=== PATIENT | female | born 1960 | race Caucasian/White ===

== ENCOUNTER 2019-07-03 12:44 | Inpatient (IN) | payer MEDICARE, BC ==
[2019-07-03] MEDS ORDERED: Chlorhexidine Gluconate 0.12% Oral Rinse 473 ML Bottle PO PRN (16:07)
--- NOTE | 2019-07-03 17:33 | PCM.HP.2 ---
H&P History of Present Illness - General Date of Service: 07/03/19 Admit Problem/Dx: Admission Diagnosis/Problem Admission Diagnosis/Problem Knee joint operation Source of Information: Patient, Old Records History Limitations: Reports: No Limitations - History of Present Illness Initial Comments - Free Text/Narative: 'torri is a 59-year-old female patient from [place] that was transferred by [facility] after a right TKA with a wound VAC for swing bed/rehabilitation. She has no concerns today. She says she is having some pain in her knee but other than that she has no concerns. She denies shortness of breath, chest pain, leg swelling, fevers, chills. He says she has a history of artificial valve. She has a history of thromboembolism and coronary artery disease. Right Knee Pain Score (Numeric/FACES): 5 - Related Data Allergies/Adverse Reactions: Allergies Allergy/AdvReac Type Severity Reaction Status Date / Time acetaminophen [From [place]] Allergy Dizziness Verified 07/03/19 14:15 adhesive Allergy Irritabilit Verified 07/03/19 14:15 y aspirin Allergy Dizziness Verified 07/03/19 14:15 bupropion Allergy Itching Verified 07/03/19 14:19 erythromycin base Allergy Other Verified 07/03/19 14:15 hydrocodone [From [place]] Allergy Dizziness Verified 07/03/19 14:15 latex Allergy Other Verified 07/03/19 14:15 metformin Allergy Diarrhea Verified 07/03/19 14:15 Penicillins Allergy Dizziness Verified 07/03/19 14:15 soap Allergy Other Verified 07/03/19 14:15 topiramate [From Topamax] Allergy Dizziness Verified 07/03/19 14:21 tramadol Allergy Other Verified 07/03/19 14:15 Home Medications: Home Meds Amitriptyline [Elavil] 50 mg PO BEDTIME 07/03/19 [History] Chlorhexidine Gluconate 0.12% [Peridex 0.12% Rinse] 10 ml PO BID PRN 07/03/19 [ History] Clindamycin HCl 600 mg PO ASDIRECTED PRN 07/03/19 [History] Ferrous Sulfate 325 mg PO Q48H 07/03/19 [History] Furosemide [Lasix] 40 mg PO BID@08,16 07/03/19 [History] Lisinopril [Prinivil] 10 mg PO DAILY 07/03/19 [History] Magnesium Oxide 500 mg PO DAILY 07/03/19 [History] Metoprolol Succinate [Toprol XL] 25 mg PO DAILY 07/03/19 [History] Omeprazole 20 mg PO DAILY@0600 07/03/19 [History] Potassium Chloride 20 meq PO BID 07/03/19 [History] Rivaroxaban [Xarelto] 20 mg PO WITHDINNER 07/03/19 [History] Sennosides/Docusate Sodium [Senna-S] 1 tab PO BID PRN 07/03/19 [History] Simvastatin 20 mg PO BEDTIME 07/03/19 [History] Sodium Fluoride [Sf 5000 Plus] 1 applic DENT BID 07/03/19 [History] Vitamin B Complex 1 tab PO DAILY 07/03/19 [History] glipiZIDE [Glipizide ER] 10 mg PO DAILY 07/03/19 [History] oxyCODONE 5 mg PO Q3H PRN 07/03/19 [History] oxyCODONE 10 mg PO Q3H PRN 07/03/19 [History] Past Medical History HEENT History: Reports: Impaired Vision Cardiovascular History: Reports: Afib, Blood Clots/VTE/DVT, Hypertension, [place], SOB on Exertion, Other (See Below) Other Cardiovascular History: TAVR-No pacemaker Respiratory History: Reports: Other (See Below) Gastrointestinal History: Reports: Chronic Constipation, GI Bleed Other Gastrointestinal History: Bleeding Ulcer CLINICAL ASST History: Reports: Other (See Below) Other OB/BYN History: Hysterectomy Musculoskeletal History: Reports: Arthritis Endocrine/Metabolic History: Reports: Diabetes, Type II - Infectious Disease History Infectious Disease History: Reports: Other (See Below) Other Infectious Disease History: Pt not sure - Past Surgical History HEENT Surgical History: Reports: None Cardiovascular Surgical History: Reports: Other (See Below) Other Cardiovascular Surgeries/Procedures: TAVR GI Surgical History: Reports: Other (See Below) Other GI Surgeries/Procedures: Gastric Sleeve Female Surgical History: Reports: None Musculoskeletal Surgical History: Reports: Arthroscopic Knee, Knee Replacement Other Musculoskeletal Surgeries/Procedures:: Right Knee Replaced 06/30 Social & Family History - Family History Family Medical History: Noncontributory - Tobacco Use Smoking Status *Q: Never Smoker - Caffeine Use Caffeine Use: Reports: Soda Other Caffeine Use: 2 cans pop/day - Recreational Drug Use Recreational Drug Use: No H&P Review of Systems - Review of Systems: Review Of Systems: See Below General: Reports: No Symptoms HEENT: Reports: No Symptoms Pulmonary: Reports: No Symptoms Cardiovascular: Reports: No Symptoms Gastrointestinal: Reports: No Symptoms Genitourinary: Reports: No Symptoms Musculoskeletal: Reports: Joint Pain Skin: Reports: No Symptoms Psychiatric: Reports: No Symptoms Neurological: Reports: No Symptoms Hematologic/Lymphatic: Reports: No Symptoms Immunologic: Reports: No Symptoms Exam - Exam Exam: See Below - Vital Signs Vital Signs: Last Vital Signs Temp 97.2 F 07/03/19 15:20 Pulse 74 07/03/19 15:20 Resp 16 07/03/19 15:20 BP 107/48 L 07/03/19 15:20 Pulse Ox 96 07/03/19 15:20 Weight: 367 lb 3.2 oz - Exam General: Alert, Oriented, Cooperative, Other (Overweight) HEENT: PERRLA, Hearing Intact, Mucosa Moist & Rankin, Posterior Pharynx Clear, TMs Clear Neck: Supple, Trachea Midline. No: Lymphadenopathy, JVD Lungs: Clear to Auscultation, Normal Respiratory Effort. No: Crackles, Rales, Rhonchi Cardiovascular: Regular Rate, Regular Rhythm, Systolic Murmur GI/Abdominal Exam: Normal Bowel Sounds, Soft, Non-Tender, No Distention, No Abnormal Bruit, No Mass Back Exam: Normal Inspection Extremities: No Pedal Edema, Other (Right knee wound covered with a wound VAC.) Skin: Warm, Dry, Intact Neurological: Normal Speech, Normal Tone Neuro Extensive - Mental Status: Alert, Oriented x3, Normal Mood/Affect, Normal Cognition Psychiatric: Alert, Normal Affect, Normal Mood - Problem List (1) S/P total knee arthroplasty SNOMED Code(s): 1849843169717, 922658866, 8206731784321 ICD Code: Z96.659 - PRESENCE OF UNSPECIFIED ARTIFICIAL KNEE JOINT Status: Acute Current Visit: Yes (2) Encounter for management of wound VAC SNOMED Code(s): 767993381 ICD Code: OGZ7604 - Status: Acute Current Visit: Yes (3) Type 2 diabetes mellitus SNOMED Code(s): 57877727 ICD Code: E11.9 - TYPE 2 DIABETES MELLITUS WITHOUT COMPLICATIONS Status: Acute Current Visit: Yes (4) History of DVT (deep vein thrombosis) SNOMED Code(s): 582122114 ICD Code: Z86.718 - PERSONAL HISTORY OF OTHER VENOUS THROMBOSIS AND EMBOLISM Status: Acute Current Visit: Yes (5) Obesity SNOMED Code(s): 186822219, 843322001 ICD Code: E66.9 - OBESITY, UNSPECIFIED Status: Acute Current Visit: Yes Problem List Initiated/Reviewed/Updated: Yes Orders Last 24hrs: Active Orders 24 hr Category Date Time Status Patient Status [ADT] Routine ADT 07/03/19 16:05 Active Activity as Tolerated [RC] .Routine Care 07/03/19 17:16 Active May Shower [RC] ASDIRECTED Care 07/03/19 16:05 Active Oxygen Therapy [RC] PRN Care 07/03/19 16:05 Active POC Glucose [Blood Glucose Check, Bedside] [RC] ,17 Care 07/03/19 17:00 Active Up With Assistance [RC] ASDIRECTED Care 07/03/19 16:05 Active VTE/DVT Education [RC] Per Unit Routine Care 07/03/19 16:05 Active Vital Signs [RC] DAILY Care 07/03/19 16:05 Active OT Evaluation and Treatment [CONS] Routine Cons 07/03/19 16:05 Active PT Evaluation and Treatment [CONS] Routine Cons 07/03/19 16:05 Active Consistent Carbohydrate Diet [DIET] Diet 07/03/19 Dinner Active Amitriptyline [Elavil] Med 07/03/19 21:00 Active 50 mg PO BEDTIME Chlorhexidine Gluconate 0.12% [Peridex 0.12% Rinse] Med 07/03/19 16:07 Active 10 ml PO BID PRN Docusate Sodium/Sennosides [Senna Plus] Med 07/03/19 16:07 Active 1 tab PO BID PRN Ferrous Sulfate Med 07/04/19 16:15 Active 325 mg PO Q48H Furosemide [Lasix] Med 07/03/19 16:00 Active 40 mg PO BID@08,16 Lisinopril [Prinivil] Med 07/04/19 09:00 Active 10 mg PO DAILY Magnesium Oxide Med 07/04/19 09:00 Active 400 mg PO DAILY Metoprolol Succinate [Toprol XL] Med 07/04/19 09:00 Active 25 mg PO DAILY Pantoprazole [ProTONIX] Med 07/04/19 06:00 Active 40 mg PO DAILY@0600 Potassium Chloride [Klor-Con M20] Med 07/03/19 21:00 Active 20 meq PO BID Rivaroxaban [Xarelto] Med 07/03/19 18:00 Active 20 mg PO WITHDINNER Simvastatin [Zocor] Med 07/03/19 21:00 Active 20 mg PO BEDTIME Sodium Fluoride [Sf 5000 Plus] Med 07/03/19 21:00 Pending 1 applic DENT BID Vitamin B Complex with C [Total B With C] Med 07/04/19 09:00 Active 1 each PO DAILY glipiZIDE [Glucotrol XL] Med 07/04/19 09:00 Active 10 mg PO DAILY oxyCODONE Med 07/03/19 16:07 Active 10 mg PO Q3H PRN oxyCODONE Med 07/03/19 16:07 Active 5 mg PO Q3H PRN Wound Vac Management [OM.PC] Routine Oth 07/03/19 17:17 Ordered Resuscitation Status Routine Resus Stat 07/03/19 16:05 Ordered Medication Orders Amitriptyline HCl (Elavil) 50 mg PO BEDTIME JONAH Chlorhexidine Gluconate (Peridex 0.12% Rinse) 10 ml PO BID PRN PRN Reason: MOUTH RINSE Ferrous Sulfate (Ferrous Sulfate) 325 mg PO Q48H JONAH Furosemide (Lasix) 40 mg PO BID@,16 JONAH Glipizide (Glucotrol Xl) 10 mg PO DAILY [facility] Lisinopril (Prinivil) 10 mg PO DAILY [facility] Magnesium Oxide (Magnesium Oxide) 400 mg PO DAILY [facility] Metoprolol Succinate (Toprol Xl) 25 mg PO DAILY [facility] Multivitamins (Total B With C) 1 each PO DAILY [facility] Non-Formulary Medication (Sodium Fluoride [Sf 5000 Plus]) 1 applic DENT BID JONAH Oxycodone HCl (Oxycodone) 10 mg PO Q3H PRN PRN Reason: SEVERE PAIN Oxycodone HCl (Oxycodone) 5 mg PO Q3H PRN PRN Reason: MODERATE PAIN Pantoprazole Sodium (Protonix) 40 mg PO DAILY@0600 [facility] Potassium Chloride (Klor-Con M20) 20 meq PO BID JONAH Rivaroxaban (Xarelto) 20 mg PO WITHDINNER JONAH Senna/Docusate Sodium (Senna Plus) 1 tab PO BID PRN PRN Reason: Constipation Simvastatin (Zocor) 20 mg PO BEDTIME JONAH Assessment/Plan Comment:: 1. Admit to swing bed. 2. PT/OT. 3. Wound VAC 4. Oxycodone for [place] for pain control. 5. Diabetic diet 6. She is on anticoagulation for VTE prophylaxis 7. Labs/x-rays none 8. Accu-Cheks twice a day 9. Continue the medications that are on her monitor from [place] except the clindamycin chooses for dental prophylaxis.
[2019-07-03] MEDS: Furosemide 40 MG Tab PO SCH (17:54)
[2019-07-03] MEDS: oxyCODONE 5 MG Tab PO PRN (19:38)
[2019-07-03] MEDS ORDERED: SODIUM FLUORIDE DENT SCH (21:00)
[2019-07-03] MEDS: Simvastatin 20 MG Tab PO SCH (21:19)
[2019-07-03] MEDS: Potassium Chloride 20 MEQ Tab.ER PO SCH (21:19)
[2019-07-04] MEDS: oxyCODONE 5 MG Tab PO PRN ×4 (02:42→21:59)
[2019-07-04] MEDS: Pantoprazole 40 MG Tab.CR PO SCH (06:30)
[2019-07-04] MEDS: Furosemide 40 MG Tab PO SCH ×2 (08:08→16:58)
[2019-07-04] MEDS: Vitamin B Complex with Vitamin C Tab PO SCH (08:09)
[2019-07-04] MEDS: Magnesium Oxide 400 MG Tab PO SCH (08:09)
[2019-07-04] MEDS: glipiZIDE 10 MG Tab.ER PO SCH (08:09)
[2019-07-04] MEDS: Potassium Chloride 20 MEQ Tab.ER PO SCH ×2 (08:09→21:31)
[2019-07-04] MEDS: Metoprolol Succinate 25 MG Tab.ER PO SCH (08:09)
[2019-07-04] MEDS: Lisinopril 10 MG Tab PO SCH (08:09)
[2019-07-04] MEDS: Ferrous Sulfate 325 MG Tab PO SCH (17:11)
[2019-07-04] MEDS: Simvastatin 20 MG Tab PO SCH (21:31)
[2019-07-05] MEDS: Pantoprazole 40 MG Tab.CR PO SCH (06:34)
[2019-07-05] MEDS: oxyCODONE 5 MG Tab PO PRN ×4 (06:45→21:15)
[2019-07-05] MEDS: Furosemide 40 MG Tab PO SCH ×2 (07:46→17:03)
[2019-07-05] MEDS: glipiZIDE 10 MG Tab.ER PO SCH (09:36)
[2019-07-05] MEDS: Potassium Chloride 20 MEQ Tab.ER PO SCH ×2 (09:37→21:05)
[2019-07-05] MEDS: Lisinopril 10 MG Tab PO SCH (09:38)
[2019-07-05] MEDS: Magnesium Oxide 400 MG Tab PO SCH (09:38)
[2019-07-05] MEDS: Metoprolol Succinate 25 MG Tab.ER PO SCH (09:39)
[2019-07-05] MEDS: Vitamin B Complex with Vitamin C Tab PO SCH (09:40)
[2019-07-05] MEDS ORDERED: Celecoxib 200 MG Cap PO SCH (09:45)
[2019-07-05] MEDS: Celecoxib 100 MG Cap PO SCH (11:58)
[2019-07-05] MEDS: Acetaminophen 500 MG Tab PO SCH ×2 (14:06→21:14)
[2019-07-05] MEDS: Simvastatin 20 MG Tab PO SCH (21:05)
[2019-07-06] MEDS: oxyCODONE 5 MG Tab PO PRN ×3 (04:08→14:31)
[2019-07-06] MEDS: Pantoprazole 40 MG Tab.CR PO SCH ×2 (04:09→06:46)
[2019-07-06] MEDS: glipiZIDE 10 MG Tab.ER PO SCH (09:11)
[2019-07-06] MEDS: Furosemide 40 MG Tab PO SCH ×2 (09:11→15:56)
[2019-07-06] MEDS: Potassium Chloride 20 MEQ Tab.ER PO SCH ×2 (09:12→20:04)
[2019-07-06] MEDS: Vitamin B Complex with Vitamin C Tab PO SCH (09:12)
[2019-07-06] MEDS: Magnesium Oxide 400 MG Tab PO SCH (09:13)
[2019-07-06] MEDS: Lisinopril 10 MG Tab PO SCH (09:13)
[2019-07-06] MEDS: Celecoxib 100 MG Cap PO SCH (09:13)
[2019-07-06] MEDS: Metoprolol Succinate 25 MG Tab.ER PO SCH (09:19)
[2019-07-06] MEDS: Acetaminophen 500 MG Tab PO SCH ×3 (09:20→20:04)
[2019-07-06] MEDS: Ferrous Sulfate 325 MG Tab PO SCH (15:56)
[2019-07-06] MEDS: Ondansetron 4 MG Tab.DIS PO PRN (17:41)
[2019-07-06] MEDS: Simvastatin 20 MG Tab PO SCH (20:04)
[2019-07-07] MEDS: oxyCODONE 5 MG Tab PO PRN ×5 (01:04→19:46)
[2019-07-07] MEDS: Pantoprazole 40 MG Tab.CR PO SCH (05:57)
[2019-07-07] MEDS: Furosemide 40 MG Tab PO SCH ×2 (07:40→15:56)
--- NOTE | 2019-07-07 08:28 | PN ---
DATE SEEN: 07/05/2019 SUBJECTIVE: Saida is a 59-year-old resident of [place], [place], who underwent right total knee replacement by Dr. Rogers at [facility] in [place], on 06/30/2019. Following surgery, her postoperative course included stable blood loss anemia, transient hyperkalemia, and transient atrial flutter. A wound VAC was placed, and she was discharged to [facility] on 07/03/2019. She has been improving slowly with less pain reported today than immediately postop. She is taking oxycodone, however, 10 mg every 3 hours, and it is only providing her minimal pain relief. Her wound VAC has not produced any drainage. She is otherwise feeling well with no fever, chills, or sweats. She did have an episode of vomiting, which she states occurs transiently. She had a gastric sleeve placed in 2014 and has had occasional unpredictable episodes of vomiting since that. OBJECTIVE: GENERAL: She is alert, comfortable, and a good historian. VITAL SIGNS: Blood pressure 142/59, pulse 76 and regular, respirations 18, temp 98.7, and O2 saturation 94% on room air. Weight 377 pounds, 2 days ago, on admission. SKIN: Anicteric, warm, and dry. She has a wound VAC in place over the left knee. No surrounding erythema is noted and no skin rash. HEENT: Shows her mouth to be dry. LUNGS: Clear to the bases. HEART: Regular with a 3/6 systolic murmur. She states she underwent TAVR in March 2019, with apparently good result. ABDOMEN: Obese, soft, and nontender. EXTREMITIES: Show trace edema at the ankles. ASSESSMENT: 1. Day #5 postoperative, right total knee arthroplasty, stable, but with inadequate pain control. 2. History of transcatheter aortic valve replacement 6 months ago, stable. 3. History of recurrent pulmonary emboli, on lifelong anticoagulation. 4. Morbid obesity. 5. Type 2 diabetes. 6. Osteoarthritis. 7. Obstructive sleep apnea. 8. Postoperative anemia with hemoglobin, 2 days ago, of 8.0. PLAN: We will add Celebrex 200 mg daily and watch for any sign of GI upset. We will also supplement with Tylenol p.r.n. and continue her oxycodone. She is progressing in therapy satisfactorily. Plans are for continued rehab in [facility] [place]. Followup orthopedic appointment with Dr. Rogers is scheduled for July 15, 2019. /[id number] RAMESH/BRIANDA
[2019-07-07] MEDS: Celecoxib 200 MG Cap PO SCH (09:33)
[2019-07-07] MEDS: Potassium Chloride 20 MEQ Tab.ER PO SCH ×2 (09:34→20:50)
[2019-07-07] MEDS: glipiZIDE 10 MG Tab.ER PO SCH (09:34)
[2019-07-07] MEDS: Magnesium Oxide 400 MG Tab PO SCH (09:34)
[2019-07-07] MEDS: Acetaminophen 500 MG Tab PO SCH ×3 (09:34→20:50)
[2019-07-07] MEDS: Lisinopril 10 MG Tab PO SCH (09:34)
[2019-07-07] MEDS: Vitamin B Complex with Vitamin C Tab PO SCH (09:35)
[2019-07-07] MEDS: Metoprolol Succinate 25 MG Tab.ER PO SCH (10:30)
[2019-07-07] MEDS: Simvastatin 20 MG Tab PO SCH (20:50)
[2019-07-08] MEDS: oxyCODONE 5 MG Tab PO PRN ×2 (04:52→20:56)
[2019-07-08] MEDS: Pantoprazole 40 MG Tab.CR PO SCH (05:01)
[2019-07-08] MEDS: Furosemide 40 MG Tab PO SCH ×2 (08:53→16:35)
[2019-07-08] MEDS: Potassium Chloride 20 MEQ Tab.ER PO SCH ×2 (08:53→20:56)
[2019-07-08] MEDS: Celecoxib 200 MG Cap PO SCH (08:53)
[2019-07-08] MEDS: glipiZIDE 10 MG Tab.ER PO SCH (08:53)
[2019-07-08] MEDS: Magnesium Oxide 400 MG Tab PO SCH (08:54)
[2019-07-08] MEDS: Lisinopril 10 MG Tab PO SCH (08:54)
[2019-07-08] MEDS: Metoprolol Succinate 25 MG Tab.ER PO SCH (08:54)
[2019-07-08] MEDS: Vitamin B Complex with Vitamin C Tab PO SCH (08:55)
[2019-07-08] MEDS: Acetaminophen 500 MG Tab PO SCH ×3 (08:55→20:56)
[2019-07-08] MEDS: Ferrous Sulfate 325 MG Tab PO SCH (16:34)
[2019-07-08] MEDS: Simvastatin 20 MG Tab PO SCH (20:56)
[2019-07-09] MEDS: oxyCODONE 5 MG Tab PO PRN ×4 (00:52→21:06)
[2019-07-09] MEDS: Pantoprazole 40 MG Tab.CR PO SCH (05:06)
[2019-07-09] MEDS: Celecoxib 200 MG Cap PO SCH (08:35)
[2019-07-09] MEDS: glipiZIDE 10 MG Tab.ER PO SCH (08:35)
[2019-07-09] MEDS: Magnesium Oxide 400 MG Tab PO SCH (08:35)
[2019-07-09] MEDS: Furosemide 40 MG Tab PO SCH ×2 (08:35→16:11)
[2019-07-09] MEDS: Vitamin B Complex with Vitamin C Tab PO SCH (08:35)
[2019-07-09] MEDS: Potassium Chloride 20 MEQ Tab.ER PO SCH ×2 (08:36→21:02)
[2019-07-09] MEDS: Metoprolol Succinate 25 MG Tab.ER PO SCH (08:36)
[2019-07-09] MEDS: Lisinopril 10 MG Tab PO SCH (08:36)
[2019-07-09] MEDS: Acetaminophen 500 MG Tab PO SCH ×3 (08:37→21:02)
[2019-07-09] MEDS: Ondansetron 4 MG Tab.DIS PO PRN (13:22)
[2019-07-09] MEDS: Simvastatin 20 MG Tab PO SCH (21:01)
[2019-07-10] MEDS: oxyCODONE 5 MG Tab PO PRN ×3 (04:06→19:17)
[2019-07-10] MEDS: Pantoprazole 40 MG Tab.CR PO SCH (06:07)
[2019-07-10] MEDS: Furosemide 40 MG Tab PO SCH ×2 (07:54→16:45)
[2019-07-10] MEDS: glipiZIDE 10 MG Tab.ER PO SCH (08:09)
[2019-07-10] MEDS: Potassium Chloride 20 MEQ Tab.ER PO SCH ×2 (08:09→20:09)
[2019-07-10] MEDS: Celecoxib 200 MG Cap PO SCH (08:09)
[2019-07-10] MEDS: Lisinopril 10 MG Tab PO SCH (08:10)
[2019-07-10] MEDS: Metoprolol Succinate 25 MG Tab.ER PO SCH (08:10)
[2019-07-10] MEDS: Magnesium Oxide 400 MG Tab PO SCH (08:10)
[2019-07-10] MEDS: Acetaminophen 500 MG Tab PO SCH ×3 (08:11→20:10)
[2019-07-10] MEDS: Vitamin B Complex with Vitamin C Tab PO SCH (08:11)
--- NOTE | 2019-07-10 11:51 | PN ---
DATE SEEN: 07/10/2019 SUBJECTIVE: Saida is a 59-year-old woman, who underwent right total knee arthroplasty by Dr. Rogers in [place] on 06/30/2019. She has been in swing bed at [facility] now since 07/03/2019. She is progressing steadily through therapy and making nice improvement. She is still having episodes of pain and occasionally she would have a shot of pain during the night, usually once or twice overnight. She is tolerating ambulation and is about to start attempting steps. PAST MEDICAL HISTORY: Past history also is positive for recurrent PEs, on long- term anticoagulation. She has had nausea intermittently, which she relates back to having her gastric sleeve surgery. OBJECTIVE: GENERAL: She is alert, comfortable, healthy-appearing, and in good spirits. VITAL SIGNS: Blood pressure 126/49, pulse 55 and regular, respirations normal, O2 saturation 97% on room air, and temp 97.4. SKIN: She has a foam dressing residual from the wound VAC in place over the right knee with the tubing clamped and the VAC system removed. There is no erythema, drainage, or significant tenderness around the incision. HEENT: Her mouth to be dry. LUNGS: Clear to the bases. HEART: Regular with a 3/6 systolic murmur most prominent over the aortic area. ABDOMEN: Obese, soft, but no epigastric area tenderness. EXTREMITIES: Trace to 1+ edema at the right ankle. ASSESSMENT: 1. One week post right total knee arthroplasty, progressing well through therapy. 2. Recurrent pulmonary embolisms, on anticoagulation. 3. Mild intermittent nausea and vomiting post gastric sleeve procedure. 4. Chronic anemia exacerbated postoperatively, poorly tolerant of iron. 5. Type 2 diabetes. 6. Hypertension. 7. Hyperlipidemia. PLAN: We will recheck her labs tomorrow. We will plan to get her off the Celebrex again over the next few days because of her current use of Xarelto and history of gastric sleeve surgery. Continue therapy. She has her followup orthopedic appointment in [place] on July 15, 2019, and anticipate discharge to home when adequately rehabilitated. /[id number] RAMESH/BRIANDA
[2019-07-10] MEDS: Ferrous Sulfate 325 MG Tab PO SCH (16:45)
[2019-07-10] MEDS: Simvastatin 20 MG Tab PO SCH (20:10)
[2019-07-11] MEDS: oxyCODONE 5 MG Tab PO PRN ×3 (01:16→16:25)
[2019-07-11] MEDS: Pantoprazole 40 MG Tab.CR PO SCH (06:13)
[2019-07-11] MEDS: Furosemide 40 MG Tab PO SCH ×2 (07:38→16:21)
[2019-07-11] MEDS: Potassium Chloride 20 MEQ Tab.ER PO SCH ×2 (09:57→20:04)
[2019-07-11] MEDS: Celecoxib 200 MG Cap PO SCH (09:57)
[2019-07-11] MEDS: glipiZIDE 10 MG Tab.ER PO SCH (09:57)
[2019-07-11] MEDS: Lisinopril 10 MG Tab PO SCH (09:57)
[2019-07-11] MEDS: Magnesium Oxide 400 MG Tab PO SCH (09:57)
[2019-07-11] MEDS: Metoprolol Succinate 25 MG Tab.ER PO SCH (09:58)
[2019-07-11] MEDS: Acetaminophen 500 MG Tab PO SCH ×3 (09:58→20:04)
[2019-07-11] MEDS: Vitamin B Complex with Vitamin C Tab PO SCH (09:58)
--- NOTE | 2019-07-11 09:58 | PCM.PN ---
- General Info Date of Service: 07/11/19 Subjective Update: Doing well. Pain still present,right knee,sharp. Functional Status: Reports: Pain Controlled - Review of Systems General: Reports: No Symptoms HEENT: Reports: No Symptoms Pulmonary: Reports: No Symptoms Cardiovascular: Reports: No Symptoms Gastrointestinal: Reports: No Symptoms Genitourinary: Reports: No Symptoms - Patient Data Vitals - Most Recent: Last Vital Signs Temp 97.8 F 07/10/19 07:33 Pulse 55 L 07/10/19 08:10 Resp 18 07/10/19 07:33 BP 126/49 L 07/10/19 08:10 Pulse Ox 98 07/10/19 07:33 Weight - Most Recent: 169.672 kg Lab Results Last 24 Hours: Laboratory Results - last 24 hr 07/10/19 07/11/19 07/11/19 Range/Units 17:19 06:20 06:20 Hgb 8.2 L (11.5-15.5) g/dL Sodium 139 (135-145) mmol/L Potassium 4.8 (3.5-5.3) mmol/L Chloride 103 (100-110) mmol/L Carbon Dioxide 28 (21-32) mmol/L BUN 30 H (7-18) mg/dL Creatinine 1.3 H (0.55-1.02) mg/dL Est Cr Clr Drug Dosing 43.62 mL/min Estimated GFR (MDRD) 42 L (>60) BUN/Creatinine Ratio 23.1 H (9-20) Glucose 103 (80-116) mg/dL POC Glucose 107 (80-116) mg/dL Calcium 8.9 (8.6-10.2) mg/dL Phosphorus 4.8 H (2.6-4.6) mg/dL Albumin 2.8 L (3.5-5.2) g/dL 07/11/19 Range/Units 06:26 Hgb (11.5-15.5) g/dL Sodium (135-145) mmol/L Potassium (3.5-5.3) mmol/L Chloride (100-110) mmol/L Carbon Dioxide (21-32) mmol/L BUN (7-18) mg/dL Creatinine (0.55-1.02) mg/dL Est Cr Clr Drug Dosing mL/min Estimated GFR (MDRD) (>60) BUN/Creatinine Ratio (9-20) Glucose (80-116) mg/dL POC Glucose 107 (80-116) mg/dL Calcium (8.6-10.2) mg/dL Phosphorus (2.6-4.6) mg/dL Albumin (3.5-5.2) g/dL Med Orders - Current: Current Medications Acetaminophen (Tylenol Extra Strength) 1,000 mg PO TID [facility] Last Admin: 07/10/19 20:10 Dose: 1,000 mg Amitriptyline HCl (Elavil) 50 mg PO BEDTIME [facility] Last Admin: 07/10/19 20:09 Dose: 50 mg Celecoxib (Celebrex) 200 mg PO DAILY [facility] Stop: 07/12/19 23:59 Last Admin: 07/10/19 08:09 Dose: 200 mg Chlorhexidine Gluconate (Peridex 0.12% Rinse) 10 ml PO BID PRN PRN Reason: MOUTH RINSE Ferrous Sulfate (Ferrous Sulfate) 325 mg PO Q48H [facility] Last Admin: 07/10/19 16:45 Dose: 325 mg Furosemide (Lasix) 40 mg PO BID@,16 [facility] Last Admin: 07/11/19 07:38 Dose: 40 mg Glipizide (Glucotrol Xl) 10 mg PO DAILY [facility] Last Admin: 07/10/19 08:09 Dose: 10 mg Lisinopril (Prinivil) 10 mg PO DAILY [facility] Last Admin: 07/10/19 08:10 Dose: 10 mg Magnesium Oxide (Magnesium Oxide) 400 mg PO DAILY [facility] Last Admin: 07/10/19 08:10 Dose: 400 mg Metoprolol Succinate (Toprol Xl) 25 mg PO DAILY [facility] Last Admin: 07/10/19 08:10 Dose: 25 mg Multivitamins (Total B With C) 1 each PO DAILY [facility] Last Admin: 07/10/19 08:11 Dose: 1 each Ondansetron HCl (Zofran Odt) 4 mg PO TID PRN PRN Reason: Nausea Last Admin: 07/09/19 13:22 Dose: 4 mg Oxycodone HCl (Oxycodone) 10 mg PO Q3H PRN PRN Reason: SEVERE PAIN Last Admin: 07/11/19 09:34 Dose: 10 mg Oxycodone HCl (Oxycodone) 5 mg PO Q3H PRN PRN Reason: MODERATE PAIN Last Admin: 07/10/19 19:17 Dose: 5 mg Pantoprazole Sodium (Protonix) 40 mg PO DAILY@0600 [facility] Last Admin: 07/11/19 06:13 Dose: 40 mg Potassium Chloride (Klor-Con M20) 20 meq PO BID [facility] Last Admin: 07/10/19 20:09 Dose: 20 meq Rivaroxaban (Xarelto) 20 mg PO WITHBREAKFAST [facility] Last Admin: 07/11/19 07:38 Dose: 20 mg Senna/Docusate Sodium (Senna Plus) 1 tab PO BID PRN PRN Reason: Constipation Last Admin: 07/05/19 09:36 Dose: 1 tab Simvastatin (Zocor) 20 mg PO BEDTIME [facility] Last Admin: 07/10/19 20:10 Dose: 20 mg Discontinued Medications Celecoxib (Celebrex) 200 mg PO DAILY [facility] Last Admin: 07/05/19 11:58 Dose: Not Given Celecoxib (Celebrex) 200 mg PO DAILY [facility] Last Admin: 07/06/19 09:13 Dose: 200 mg Rivaroxaban (Xarelto) 20 mg PO WITHDINNER [facility] Last Admin: 07/03/19 17:54 Dose: 20 mg Rivaroxaban (Xarelto) 20 mg PO WITHLUNCH [facility] Stop: 07/04/19 12:01 Last Admin: 07/04/19 12:08 Dose: 20 mg - Exam General: Alert HEENT: Pupils Equal Neck: Supple Lungs: Clear to Auscultation Cardiovascular: Regular Rate, Murmurs - Problem List & Annotations (1) Encounter for management of wound VAC SNOMED Code(s): 023412818 Code(s): IMS1085 - Status: Acute Current Visit: Yes (2) History of DVT (deep vein thrombosis) SNOMED Code(s): 284466942 Code(s): Z86.718 - PERSONAL HISTORY OF OTHER VENOUS THROMBOSIS AND EMBOLISM Status: Acute Current Visit: Yes (3) Obesity SNOMED Code(s): 433777511, 728831159 Code(s): E66.9 - OBESITY, UNSPECIFIED Status: Acute Current Visit: Yes (4) S/P total knee arthroplasty SNOMED Code(s): 9714182770758, 357217057, 0847822972632 Code(s): Z96.659 - PRESENCE OF UNSPECIFIED ARTIFICIAL KNEE JOINT Status: Acute Current Visit: Yes (5) Type 2 diabetes mellitus SNOMED Code(s): 04582200 Code(s): E11.9 - TYPE 2 DIABETES MELLITUS WITHOUT COMPLICATIONS Status: Acute Current Visit: Yes - Problem List Review Problem List Initiated/Reviewed/Updated: Yes - Plan Plan:: continue current meds,pt.ot. Will need HH upon discharge because she is considered Homebound to severe pain,need for continual wound vac management,PT and OT
[2019-07-11] MEDS: Ondansetron 4 MG Tab.DIS PO PRN (11:50)
[2019-07-11] MEDS: Simvastatin 20 MG Tab PO SCH (20:04)
[2019-07-12] MEDS: oxyCODONE 5 MG Tab PO PRN ×2 (01:48→08:48)
[2019-07-12] MEDS: Pantoprazole 40 MG Tab.CR PO SCH (05:57)
[2019-07-12] MEDS: glipiZIDE 10 MG Tab.ER PO SCH (08:27)
[2019-07-12] MEDS: Acetaminophen 500 MG Tab PO SCH ×3 (08:27→20:12)
[2019-07-12] MEDS: Lisinopril 10 MG Tab PO SCH (08:27)
[2019-07-12] MEDS: Celecoxib 200 MG Cap PO SCH (08:27)
[2019-07-12] MEDS: Vitamin B Complex with Vitamin C Tab PO SCH (08:27)
[2019-07-12] MEDS: Potassium Chloride 20 MEQ Tab.ER PO SCH ×2 (08:28→20:11)
[2019-07-12] MEDS: Metoprolol Succinate 25 MG Tab.ER PO SCH (08:28)
[2019-07-12] MEDS: Magnesium Oxide 400 MG Tab PO SCH (08:29)
[2019-07-12] MEDS: Furosemide 40 MG Tab PO SCH ×2 (08:29→15:21)
[2019-07-12] MEDS: Ferrous Sulfate 325 MG Tab PO SCH (17:27)
[2019-07-12] MEDS: Ondansetron 4 MG Tab.DIS PO PRN (18:24)
[2019-07-12] MEDS: Simvastatin 20 MG Tab PO SCH (20:12)
[2019-07-13] MEDS: oxyCODONE 5 MG Tab PO PRN ×2 (00:22→08:48)
[2019-07-13] MEDS: Pantoprazole 40 MG Tab.CR PO SCH (05:48)
[2019-07-13] MEDS: Lisinopril 10 MG Tab PO SCH (08:48)
[2019-07-13] MEDS: Vitamin B Complex with Vitamin C Tab PO SCH (08:48)
[2019-07-13] MEDS: Magnesium Oxide 400 MG Tab PO SCH (08:49)
[2019-07-13] MEDS: Acetaminophen 500 MG Tab PO SCH ×3 (08:49→20:10)
[2019-07-13] MEDS: glipiZIDE 10 MG Tab.ER PO SCH (08:49)
[2019-07-13] MEDS: Potassium Chloride 20 MEQ Tab.ER PO SCH ×2 (08:49→20:09)
[2019-07-13] MEDS: Furosemide 40 MG Tab PO SCH ×2 (08:50→14:25)
[2019-07-13] MEDS: Metoprolol Succinate 25 MG Tab.ER PO SCH (08:50)
[2019-07-13] MEDS ORDERED: Magnesium Hydroxide 400 MG/5 ML Susp 30 ML Cup PO PRN (12:30)
[2019-07-13] MEDS ORDERED: Bisacodyl 5 MG Tab PO PRN ×2 (12:31→14:00)
[2019-07-13] MEDS ORDERED: Bisacodyl 10 MG Supp RECTAL PRN (14:16)
[2019-07-13] MEDS ORDERED: Sodium Phosphate,Monobasic/Sodium Phosphate,Dibasic Enema 133 ML Bottle RECTAL ONE (15:52)
[2019-07-13] MEDS ORDERED: Polyethylene Glycol 3350 Powder 17 GM Packet PO ONE (19:56)
[2019-07-13] MEDS: Simvastatin 20 MG Tab PO SCH (20:10)
[2019-07-14] MEDS: Pantoprazole 40 MG Tab.CR PO SCH (06:45)
[2019-07-14] MEDS: Vitamin B Complex with Vitamin C Tab PO SCH (09:39)
[2019-07-14] MEDS: Acetaminophen 500 MG Tab PO SCH ×3 (09:40→20:36)
[2019-07-14] MEDS: Potassium Chloride 20 MEQ Tab.ER PO SCH ×2 (09:40→20:37)
[2019-07-14] MEDS: glipiZIDE 10 MG Tab.ER PO SCH (09:40)
[2019-07-14] MEDS: Furosemide 40 MG Tab PO SCH ×2 (09:40→13:30)
[2019-07-14] MEDS: Magnesium Oxide 400 MG Tab PO SCH (09:40)
[2019-07-14] MEDS: Lisinopril 10 MG Tab PO SCH (09:41)
[2019-07-14] MEDS: Metoprolol Succinate 25 MG Tab.ER PO SCH (09:42)
[2019-07-14] MEDS: Ondansetron 4 MG Tab.DIS PO PRN (13:30)
[2019-07-14] MEDS: Ferrous Sulfate 325 MG Tab PO SCH (18:08)
[2019-07-14] MEDS: Simvastatin 20 MG Tab PO SCH (20:35)
[2019-07-15] MEDS: Pantoprazole 40 MG Tab.CR PO SCH (05:03)
[2019-07-15] MEDS: glipiZIDE 10 MG Tab.ER PO SCH (08:44)
[2019-07-15] MEDS: Magnesium Oxide 400 MG Tab PO SCH (08:44)
[2019-07-15] MEDS: Furosemide 40 MG Tab PO SCH (08:44)
[2019-07-15] MEDS: Potassium Chloride 20 MEQ Tab.ER PO SCH (08:44)
[2019-07-15] MEDS: Lisinopril 10 MG Tab PO SCH (08:44)
[2019-07-15] MEDS: Metoprolol Succinate 25 MG Tab.ER PO SCH (08:45)
[2019-07-15] MEDS: Acetaminophen 500 MG Tab PO SCH (08:46)
[2019-07-15] MEDS: Vitamin B Complex with Vitamin C Tab PO SCH (08:46)
--- NOTE | 2019-07-15 14:23 | DISCH ---
DISCHARGE DATE: 07/15/2019 REASON FOR ADMISSION: Status post right knee arthroplasty and encounter for management of wound VAC. DISCHARGE DIAGNOSES: 1. Status post right knee arthroplasty. 2. Encounter for management of wound VAC. 3. Obesity. 4. Type 2 diabetes. 5. Hyperlipidemia. 6. Constipation. 7. History of deep vein thrombosis. BRIEF HISTORY AND HOSPITAL COURSE: This is a 59-year-old female who had right knee arthroplasty and who was admitted for rehab, pain control, and wound VAC management. She has undergone physical therapy, has been treated with oxycodone for pain control, and she is on Xarelto for previous deep vein thrombosis. She also recently had a ELAINE. She is discharged today on the with home health because she is still considered homebound and unable to ambulate without significant pain and needs help also with physical and occupational therapy. DISCHARGE MEDICATIONS: She was discharged on; 1. Oxycodone 5 mg t.i.d. p.r.n., 20 tablets. 2. She will also go home on Zofran 4 mg t.i.d. p.r.n., 20 tablets. Outside of that, she is to go home on her previous home prescriptions. They include; 1. Glipizide. 2. Metoprolol. 3. Simvastatin. 4. Lasix. 5. Potassium chloride. 6. Senna. 7. Dulcolax. 8. Omeprazole. 9. She also takes lisinopril 10 mg a day. 10.Magnesium hydroxide. 11.Amitriptyline 50 mg at bedtime. 12.She takes Xarelto 20 mg with breakfast. FOLLOWUP: She will see her PCP as previously scheduled with Orthopedics, but will be going home with home health agency because of the home bound status and continuation of rehab and wound VAC at home. I spent more than 35 minutes in the discharge of the patient. /[id number] JENN/BRIANDA
== END 2019-07-15 12:32 | disposition home health service (06) | DRG 560 ==
LOC: FB.MS 14:43
PROVIDERS: ADMIT Family Medicine; ATTEND Family Medicine
DX: Z47.1 Aftercare following joint replacement surgery (principal); Z68.43 Body mass index [BMI] 50.0-59.9, adult; Z96.651 Presence of right artificial knee joint; E11.9 Type 2 diabetes mellitus without complications; E78.5 Hyperlipidemia, unspecified; I25.10 Atherosclerotic heart disease of native coronary artery without angina pectoris; H54.7 Unspecified visual loss; I48.91 Unspecified atrial fibrillation; K59.09 Other constipation; M19.90 Unspecified osteoarthritis, unspecified site; D64.9 Anemia, unspecified; R11.2 Nausea with vomiting, unspecified; E66.01 Morbid (severe) obesity due to excess calories; G47.33 Obstructive sleep apnea (adult) (pediatric); I25.2 Old myocardial infarction; Z86.718 Personal history of other venous thrombosis and embolism; Z88.6 Allergy status to analgesic agent; Z88.1 Allergy status to other antibiotic agents; Z88.5 Allergy status to narcotic agent; Z91.048 Other nonmedicinal substance allergy status; Z91.040 Latex allergy status; Z88.8 Allergy status to other drugs, medicaments and biological substances; Z88.0 Allergy status to penicillin; Z79.899 Other long term (current) drug therapy; Z79.84 Long term (current) use of oral hypoglycemic drugs; Z90.710 Acquired absence of both cervix and uterus; Z79.01 Long term (current) use of anticoagulants; Z98.84 Bariatric surgery status; Z86.711 Personal history of pulmonary embolism
CPT/HCPCS: 36415; 80053; 80069; 82962; 85018; 85025; 85045; 97110-GO; 97110-GP; 97116-GP; 97161-GP; 97165-GO; 97530-GO; 97535-GO; A9270-GY

== ENCOUNTER 2025-05-25 12:39 | Inpatient (IN) | payer MEDICARE, BC ==
[2025-05-25] MEDS ORDERED: Atropine/Diphenoxylate 0.025-2.5 MG Tab PO PRN (13:38)
[2025-05-25] MEDS ORDERED: Warfarin Sliding Scale PO SCH (13:45)
[2025-05-26] MEDS: Mirabegron 25 MG Tab Extended Release PO SCH (08:58)
[2025-05-26] MEDS: Ondansetron 4 MG Tab.DIS PO PRN (09:06)
[2025-05-26] MEDS: Nystatin Topical Powder 15 GM Bottle TOP SCH (11:14)
[2025-05-27] MEDS: Ergocalciferol (Vitamin D2) 1.25 MG Cap PO SCH (09:22)
[2025-05-28 06:51] LABS: INR 2.12 (1.00-1.24)
[2025-06-01 07:00] LABS: INR 1.83 (1.00-1.24)
[2025-06-02 06:43] LABS: INR 2.05 (1.00-1.24)
== END 2025-06-02 10:00 | disposition home or self-care (01) | DRG 948 ==
LOC: FB.MS 12:39
PROVIDERS: ADMIT Family Medicine; ATTEND Internal Medicine
DX: R53.81 Other malaise (principal); Z68.42 Body mass index [BMI] 45.0-49.9, adult; C56.2 Malignant neoplasm of left ovary; J96.11 Chronic respiratory failure with hypoxia; E78.5 Hyperlipidemia, unspecified; G47.33 Obstructive sleep apnea (adult) (pediatric); I25.10 Atherosclerotic heart disease of native coronary artery without angina pectoris; H54.7 Unspecified visual loss; I48.91 Unspecified atrial fibrillation; I11.0 Hypertensive heart disease with heart failure; I50.9 Heart failure, unspecified; I25.2 Old myocardial infarction; E66.01 Morbid (severe) obesity due to excess calories; K59.09 Other constipation; K21.9 Gastro-esophageal reflux disease without esophagitis; M19.90 Unspecified osteoarthritis, unspecified site; E11.40 Type 2 diabetes mellitus with diabetic neuropathy, unspecified; E61.1 Iron deficiency; Z85.05 Personal history of malignant neoplasm of liver; Z90.710 Acquired absence of both cervix and uterus; Z96.659 Presence of unspecified artificial knee joint; Z86.711 Personal history of pulmonary embolism; Z98.890 Other specified postprocedural states; Z88.8 Allergy status to other drugs, medicaments and biological substances; Z79.01 Long term (current) use of anticoagulants; Z86.718 Personal history of other venous thrombosis and embolism; Z95.2 Presence of prosthetic heart valve; Z79.899 Other long term (current) drug therapy; Z88.0 Allergy status to penicillin
CPT/HCPCS: 85610; 97110-GO; 97116-GP; 97161-GP; 97165-GO; 97530-GP; 97535-GO; 99305; 99315; A9270-GY; Q0162